=== PATIENT | female | born 1970 | race African-American/Black ===

== ENCOUNTER 2019-11-12 12:00 | Emergency (ER) | payer OTHER ==
[~2019-11-12] VITALS: Ht 162.6 cm; Wt 75.7 kg
[2019-11-12 12:07] VITALS: BP_SYST 150
[2019-11-12 13:33] VITALS: BP_SYST 150
== END 2019-11-12 13:36 | disposition home or self-care (01) ==
LOC: SED 12:00
DX: S63.592A Other specified sprain of left wrist, initial encounter (principal); S63.591A Other specified sprain of right wrist, initial encounter; R03.0 Elevated blood-pressure reading, without diagnosis of hypertension
CPT/HCPCS: 99283

== ENCOUNTER 2019-11-14 09:26 | Emergency (ER) | payer OTHER ==
[~2019-11-14] VITALS: Ht 162.6 cm; Wt 72.6 kg
[2019-11-14 09:29] VITALS: BP_SYST 147
[2019-11-14 09:50] VITALS: BP_SYST 147
== END 2019-11-14 09:50 | disposition home or self-care (01) ==
LOC: SED 09:26
DX: S50.11XA Contusion of right forearm, initial encounter (principal); S50.12XA Contusion of left forearm, initial encounter; W18.39XA Other fall on same level, initial encounter; Y93.89 Activity, other specified; Y92.89 Other specified places as the place of occurrence of the external cause; Y99.8 Other external cause status
CPT/HCPCS: 99282